=== PATIENT | female | born 1950 | race Caucasian/White ===

== ENCOUNTER 2017-02-12 23:29 | Observation (INO) | payer MEDICARE, OTHER ==
[2017-02-13] MEDS ORDERED: DILTIAZEM HCL/D5W 125 ML IV PRN (00:17)
[2017-02-13] MEDS ORDERED: DILTIAZEM HCL INJ 25 MG/5 ML VIAL IV ONE (00:17)
[2017-02-13 00:19] LABS: ABSOLUTE BASOPHILS # (AUTO) 0.1 10^3/uL (0.0-0.2); ABSOLUTE EOSINOPHILS # (AUTO) 0.1 10^3/uL (0.0-0.6); ABSOLUTE LYMPHOCYTES (AUTO) 2.2 10^3/uL (0.5-4.7); ABSOLUTE MONOCYTES (AUTO) 0.5 10^3/uL (0.1-1.4); ABSOLUTE NEUT (AUTO) 3.3 10^3/uL (1.7-8.2); BASOPHILS % (AUTO) 0.8 % (0-2); EOSINOPHILS % (AUTO) 2.3 % (0-6); HEMATOCRIT 39.7 % (36.0-47.0); HEMOGLOBIN 13.2 g/dL (12.0-15.5); HGB HCT DIFFERENCE -0.1; LYMPHOCYTES % (AUTO) 35.2 % (13-45); MEAN CORPUSCULAR HEMOGLOBIN 29.5 pg (27.0-33.4); MEAN CORPUSCULAR HGB CONC 33.2 g/dL (32.0-36.0); MEAN CORPUSCULAR VOLUME 89 fl (80-97); MONOCYTES % (AUTO) 8.4 % (3-13); RED BLOOD COUNT 4.47 10^6/uL (3.72-5.28); RED CELL DISTRIBUTION WIDTH 13.3 % (11.5-14.0); SEGMENTED NEUTROPHILS % (AUTO) 53.3 % (42-78); WHITE BLOOD COUNT 6.2 10^3/uL (4.0-10.5)
--- NOTE | 2017-02-13 00:20 | ER Document Report ---
ED General - General Chief Complaint: Chest Pain Stated Complaint: CHEST DISCOMFORT Time Seen by Provider: 02/13/17 00:03 TRAVEL OUTSIDE OF THE [place] IN LAST 30 DAYS: No - HPI Patient complains to provider of: Chest pain rapid heart rate Notes: Patient coming in for chest pain of heart rate. Patient states after going to bed around 930 2:00 night started having chest discomfort going into her back also feeling her heart was beating very fast. Patient states had a history of hypertension and high cholesterol is currently on hydrochlorothiazide and Crestor. Patient denies any other medical problems. Patient denies history of atrial fibrillation in the past fluid within the monitor patient is obviously in A. fib with RVR. Patient states recently traveled to [place] however no history of DVT PE in the past. Patient also has no history of family history of dissection or aneurysm. Denies smoking drinking or drugs denies thyroid issues. [facility] Related Data Allergies/Adverse Reactions: celecoxib [From Celebrex] Allergy (Severe, Verified 02/13/17 00:36) neomycin [Neomycin] Allergy (Severe, Verified 02/13/17 00:36) alendronate sodium [From Fosamax] Allergy (Mild, Verified 02/13/17 00:36) amoxicillin [Amoxicillin] Allergy (Mild, Verified 02/13/17 00:36) atorvastatin calcium [From Lipitor] Allergy (Mild, Verified 02/13/17 00:36) risedronate sodium [From Actonel] Allergy (Mild, Verified 02/13/17 00:36) simvastatin [Simvastatin] Allergy (Verified 02/13/17 00:36) Past Medical History - Social History Smoking Status: Unknown if Ever Smoked Family History: Reviewed & Not Pertinent Patient has suicidal ideation: No Patient has homicidal ideation: No - Past Medical History Cardiac Medical History: Reports: Hx Coronary Artery Disease, Hx Hypertension Denies: Hx Heart Attack Pulmonary Medical History: Reports: Hx Asthma - exercise induced asthma Denies: Hx Bronchitis, Hx COPD, Hx Pneumonia Neurological Medical History: Denies: Hx Cerebrovascular Accident, Hx Seizures Renal/ Medical History: Denies: Hx Peritoneal Dialysis Musculoskeltal Medical History: Reports Hx Arthritis - RA Past Surgical History: Denies: Hx Hysterectomy - Immunizations Hx Diphtheria, Pertussis, Tetanus Vaccination: Yes Review of Systems - Review of Systems Constitutional: No symptoms reported EENT: No symptoms reported Cardiovascular: Chest pain Respiratory: No symptoms reported Gastrointestinal: No symptoms reported Genitourinary: No symptoms reported Female Genitourinary: No symptoms reported Musculoskeletal: No symptoms reported Skin: No symptoms reported Hematologic/Lymphatic: No symptoms reported Neurological/Psychological: No symptoms reported -: Yes All other systems reviewed and negative Physical Exam - Vital signs Vitals: Temp Pulse Resp BP Pulse Ox 97.8 F 109 H 16 142/97 H 100 02/12/17 23:33 02/12/17 23:33 02/12/17 23:33 02/12/17 23:33 02/12/17 23:33 Interpretation: Tachycardic - General General appearance: Appears well, Alert - HEENT Head: Normocephalic, Atraumatic Eyes: Normal Pupils: PERRL - Respiratory Respiratory status: No respiratory distress Chest status: Nontender Breath sounds: Normal Chest palpation: Normal - Cardiovascular Rhythm: Irregularly irregular, Tachycardia Heart sounds: Normal auscultation Murmur: No - Abdominal Inspection: Normal Distension: No distension Bowel sounds: Normal Tenderness: Nontender Organomegaly: No organomegaly - Back Back: Normal, Nontender - Extremities General upper extremity: Normal inspection, Nontender, Normal color, Normal ROM , Normal temperature General lower extremity: Normal inspection, Nontender, Normal color, Normal ROM , Normal temperature, Normal weight bearing. No: Mihaela's sign - Neurological Neuro grossly intact: Yes Cognition: Normal Orientation: AAOx4 [place] Coma Scale Eye Opening: Spontaneous [place] Coma Scale Verbal: Oriented [place] Coma Scale Motor: Obeys Commands [place] Coma Scale Total: 15 Speech: Normal Motor strength normal: LUE, RUE, LLE, RLE Sensory: Normal - Psychological Associated symptoms: Normal affect, Normal mood - Skin Skin Temperature: Warm Skin Moisture: Dry Skin Color: Normal Course - Re-evaluation Re-evalutation: 02/13/17 00:20 02/13/17 03:17 Patient initially presented with Gopi DANIELLE complaining of chest pain substernal going to her back. Clean patient we would need to start her on medication however prior to giving Cardizem patient spontaneously converted to normal sinus rhythm. Because of the distribution of pain CTA was performed no signs of PE or dissection. Initial lab work also negative except for slightly elevated TSH. Patient is currently asymptomatic however with no previous testing with patient's symptoms will admit the patient for further evaluation of her chest pain and transient A. fib - Vital Signs Vital signs: Temp Pulse Resp BP Pulse Ox 97.8 F 109 H 14 151/86 H 99 02/12/17 23:33 02/12/17 23:33 02/13/17 03:00 02/13/17 01:01 02/13/17 03:00 - Laboratory Result Diagrams: 02/13/17 00:06 02/13/17 00:06 Laboratory results interpreted by me: 02/13/17 02/13/17 00:06 00:06 Glucose 114 H TSH 5.18 H Critical Care Note - Critical Care Note Total time excluding time spent on procedures (mins): 35 Comments: Multiple evaluation for patient with A. fib with RVR. Discharge - Discharge Clinical Impression: A. fib RVR resolved, Chest pain, Elevated TSH Admitting Provider: Hospitalist Unit Admitted: Telemetry
[2017-02-13 00:21] LABS: PARTIAL THROMBOPLASTIN TIME 34.1 SEC (23.5-35.8); PROTHROMBIN TIME 12.1 SEC (11.4-15.4)
[2017-02-13 00:35] LABS: ALANINE AMINOTRANSFERASE 38 U/L (9-52); ALBUMIN 4.4 g/dL (3.5-5.0); ALKALINE PHOSPHATASE 86 U/L (38-126); ANION GAP 11 (5-19); ASPARTATE AMINO TRANSFERASE 28 U/L (14-36); BILIRUBIN,DIRECT 0.2 mg/dL (0.0-0.4); BILIRUBIN,TOTAL 0.4 mg/dL (0.2-1.3); BLOOD UREA NITROGEN 11 mg/dL (7-20); CALCIUM 9.3 mg/dL (8.4-10.2); CARBON DIOXIDE 29 mmol/L (22-30); CHLORIDE 103 mmol/L (98-107); CREATINE KINASE 51 U/L (30-135); CREATININE RESULT 0.64 mg/dL (0.52-1.25); GLUCOSE 114 mg/dL (75-110); POTASSIUM 3.8 mmol/L (3.6-5.0); SODIUM 143.1 mmol/L (137-145); TOTAL PROTEIN 7.4 g/dL (6.3-8.2)
[2017-02-13 00:58] LABS: CREATINE KINASE MB 0.75 ng/mL (<4.55)
[2017-02-13 01:00] LABS: TROPONIN I < 0.012 ng/mL
[2017-02-13 01:03] LABS: LIPASE 246.7 U/L (23-300); MAGNESIUM 2.2 mg/dL (1.6-2.3)
[2017-02-13 02:04] LABS: THYROID STIMULATING HORMONE 5.18 uIU/mL (0.47-4.68)
--- NOTE | 2017-02-13 02:21 | RADIOLOGY REPORT (SQ) ---
EXAM DESCRIPTION: CHEST SINGLE VIEW COMPLETED DATE/TIME: 02/13/2017 2:01 am REASON FOR STUDY: cp COMPARISON: 07/03/2015. EXAM PARAMETERS: NUMBER OF VIEWS: One view. TECHNIQUE: Single frontal radiographic view of the chest acquired. RADIATION DOSE: NA LIMITATIONS: None. FINDINGS: LUNGS AND PLEURA: No opacities, masses or pneumothorax. No pleural effusion. MEDIASTINUM AND HILAR STRUCTURES: No masses. Contour normal. HEART AND VASCULAR STRUCTURES: Heart normal in size. Normal vasculature. BONES: No acute findings. HARDWARE: None in the chest. OTHER: No other significant finding. IMPRESSION: NO ACUTE RADIOGRAPHIC FINDING IN THE CHEST. TECHNICAL DOCUMENTATION: JOB ID: [id number]
--- NOTE | 2017-02-13 02:29 | RADIOLOGY REPORT (SQ) ---
EXAM DESCRIPTION: CTA CHEST COMPLETED DATE/TIME: 02/13/2017 2:01 am REASON FOR STUDY: afib chest pain COMPARISON: None. TECHNIQUE: CT scan of the chest performed using helical scanning technique with dynamic intravenous contrast injection. Images reviewed with lung, soft tissue and bone windows. Reconstructed coronal and sagittal MPR images reviewed. Additional 3 dimensional post-processing performed to develop Maximal Intensity Projection images (WI P). All images stored on PACS. All CT scanners at this facility use dose modulation, iterative reconstruction, and/or weight based d osing when appropriate to reduce radiation dose to as low as reasonably achievable (ALARA). [facility]: Dose Right [facility]: CareDose [facility]: Dose Right [facility]: Teradose 4D [facility]: MuckRock CONTRAST TYPE AND DOSE: contrast/concentration: Isovue 370.00 mg/ml; Total Contrast Delivered: 63.0 ml; Total Saline Delivered: 104.0 ml RENAL FUNCTION: Creatinine 0.6 RADIATION DOSE: Up-to-date CT equipment and radiation dose reduction techniques were employed. CTDIv ol: 6.6 - 14.3 mGy. DLP: 535 mGy-cm. . LIMITATIONS: None. FINDINGS: LUNGS AND PLEURA: No masses, infiltrates, pneumothorax. No pleural effusions, calcificati ons. Mild emphysematous hyperinflation. AORTA AND GREAT VESSELS: Mild aneurysmal enlargement of the ascending thoracic aorta measures up to 3 .7 cm in diameter. HEART: No pericardial effusion. Small coronary arterial calcification. PULMONARY ARTERIES: No emboli visualized in the main pulmonary arteries or the segmental branches. HILAR AND MEDIASTINAL STRUCTURES: No identified masses or abnormal nodes. HARDWARE: None in the chest. UPPER ABDOMEN: Small hiatal hernia. THYROID AND OTHER SOFT TISSUES: No masses. No adenopathy. BONES: No acute or significant finding. 3D MIPS: Confirm above findings. OTHER: No other significant finding. IMPRESSION: No acute cardiopulmonary findings. No evidence of pulmonary emboli. TECHNICAL DOCUMENTATION: JOB ID: [id number] Quality ID # [id number]: Final reports with documentation of one or more dose reduction techniques (e.g., Au tomated exposure control, adjustment of the mA and/or kV according to patient size, use of iterative reconstruction technique) 2010 [employer]- All Rights Reserved
[2017-02-13] MEDS ORDERED: ACETAMINOPHEN 325 MG TABLET PO PRN (03:42)
[2017-02-13] MEDS ORDERED: PROMETHAZINE HCL 25 MG TABLET PO PRN (07:44)
--- NOTE | 2017-02-13 08:20 | PDOC H&P ---
History of Present Illness Admission Date/PCP: 02/13/17 03:44 [facility] Patient complains of: chest pain History of Present Illness: MARTA BENITEZ is a 66 year old female with underlying hypertension , hyperlipidemia, and rheumatoid arthritis, who presents to the emergency room for evaluation of above complaint. Patient has been discussed with emergency room physician who evaluated the patient. Approximately 9:30 PM the evening of the first, as patient was getting ready to go to bed, she began having pressure-like substernal chest discomfort that radiated into her back. Also had a sensation that her heart was beating rather rapidly. Nothing in particular made the pain worse. No prior such episodes of pain. Upon arrival in the emergency room, was noted to be in atrial fibrillation with rapid ventricular response. However, she spontaneously converted back to sinus rhythm prior to any medication being given. Denies nausea vomiting, diarrhea or dysuria, fever or chills. She is currently resting quietly, chest pain-free. No prior history of atrial fibrillation, atrial flutter, or rapid irregular heartbeat. Cardiac history basically negative other than hypertension. No history of congestive heart failure, or myocardial infarction. No history of pulmonary embolus or DVT. She did recently take a trip to [place]. However, unremarkable CT angiogram of chest. Negative stress test approximately 10 years ago. Hospitalized on our service basically for 24 hours 03 July 2015 with final diagnoses including chest pain rheumatoid arthritis hypertension and hyperlipidemia. Outpatient cardiac stress test was recommended to patient, but she did not follow-up with this. History and physical and discharge summary have been reviewed. Laboratory results are listed in [facility] and are reviewed. X-ray summary results are listed below, with full report(s) reviewed. . EKG's reviewed and compared to prior tracing from July 03, 2015. Social history/personal habits: . 2 daughters. Retired. No use of tobacco or illicit drugs. Approximately a bottle of wine per week. Allergies/adverse reactions are listed in [facility] and are reviewed. Home medications initially autopopulated into [employer] may not accurately reflect patient's true medications, dosages, and/or frequencies. personnel technician to reconcile medications. Unfortunately, patient not certain of all medications/dosages/frequencies. REVIEW OF SYSTEMS: Constitutional: No fever or chills. Eyes: Wears glasses. ENT: No swallowing problems or complaints. Partial hearing loss. Pulmonary: No current complaints. Cardiovascular: See history and present illness. Gastrointestinal: No current complaints, including nausea or vomiting. Skin: Mild psoriasis involving her hands. Hematologic: Easy bruising. Neurologic: No current complaints, including numbness or tingling. Musculoskeletal: Pain from rheumatoid arthritis. Psychiatric: Denies anxiety or depression. Endocrine: No current complaints, including polyuria. Genitourinary: No current complaints, including dysuria. PHYSICAL EXAMINATION: 5 feet 1 inches tall. 55.7 kg. BMI 23.2 kg/m.Temperature 97.6. Pulse 64 and regular. Blood pressure 154/75. 100% saturation on room air. Respirations are 18 and unlabored. Thin otherwise well-developed female appearing a bit younger than her stated age. Pleasant awake alert and cooperative. No obvious distress other than perhaps mildly anxious. Female floor nurse Rafaela is present. Skin is warm and dry. No grossly obvious evidence of rash in areas of skin examined. No subcutaneous nodules palpated. ENT: Hearing grossly normal to normal conversation. Tongue midline on protrusion pink and slightly tacky. Eyes: No scleral icterus. Pupils equal and reactive to light at 4 mm. Percival conjunctivae. Neck is supple and nontender to gentle active range of motion and palpation. Midline trachea. No palpable thyroid nodule mass enlargement or tenderness. Lymphatic: No palpable cervical or clavicular nodes. Neck and lymphatic exams limited by patient body habitus. Psychiatric: Reasonable insight into acute and chronic medical issues. Oriented to time location and why here. Lungs: Auscultation reveals clear and equal breath sounds bilaterally. No use of accessory respiratory muscles. Cardiovascular: Heart regular rate and rhythm, without gallop murmur or rub. No carotid or abdominal aortic bruits. No ankle or pedal edema. Faintly palpable dorsalis pedis pulses. Abdomen:soft slightly distended nontender with positive bowel sounds. Unable to adequately evaluate abdomen for masses or organomegaly due to distention. Compression of neither her upper abdomen nor sternum reproduces her previously noted chest discomfort. Extremities: Feet are warm and dry. No calf tenderness to compression. No grossly obvious visual evidence of calf swelling. Gentle manipulation of lower extremities fails to reveal any obvious evidence of injury or instability to knees hips or ankles. Neurologic: Moves upper extremities grossly normally. Patellar reflexes absent. Absent Babinski. Light touch is intact at feet. Dorsiflexion and plantarflexion of feet 5 / 5 and symmetric. Past Medical History Cardiac Medical History: Reports: Hyperlipidema, Hypertension Denies: Congestive Heart Failure, DVT, Myocardial Infarction, Pulmonary Embolism - / Pulmonary Medical History: Reports: Asthma - exercise induced asthma Denies: Bronchitis, Chronic Obstructive Pulmonary Disease (COPD), Pneumonia, Sleep Apnea EENT Medical History: Reports: Eyes - Glasses, Ears - Partial hearing loss Denies: Throat Neurological Medical History: Denies: Hemorrhagic CVA, Ischemic CVA, Seizures Endocrine Medical History: Denies: Diabetes Mellitus Type 1, Diabetes Mellitus Type 2, Hyperthyroidism, Hypothyroidism Renal/ Medical History: Reports: None GI Medical History: Reports: Gastroesophageal Reflux Disease Denies: Cirrhosis, Hepatitis, Peptic Ulcer Disease Musculoskeltal Medical History: Reports: Arthritis - RA Skin Medical History: Reports: Psoriasis Psychiatric Medical History: Denies: Alcohol Dependency, Depression, General Anxiety Disorder, Substance Abuse, Tobacco Dependency Hematology: Reports: Other - Easy bruising Denies: Anemia Infectious Medical History: Denies: Clostridium Difficile, Hepatitis B, Hepatitis C, Methicillin- Resistant Staph Aureus Past Surgical History Past Surgical History: Reports: Other - Excision of cerebral meningioma Denies: Hysterectomy Social History Information Source: Patient, Emergency Med Personnel, [facility] Records Lives with: Spouse/Significant other Smoking Status: Never Smoker Frequency of Alcohol Use: Rare Hx Recreational Drug Use: No Drugs: None Hx Prescription Drug Abuse: No - Advance Directive Resuscitation Status: Full Code Surrogate healthcare decision maker:: Family History Family History: Reviewed & Not Pertinent Parental Family History Reviewed: Yes - Father at 95 of old age. Mother of heart disease. Children Family History Reviewed: Yes - Healthy Sibling(s) Family History Reviewed.: Yes - Brother with hyperglycemia Medication/Allergy Home Medications: RX: Cetirizine HCl [Zyrtec 10 mg Tablet] 10 mg PO DAILY PRN 07/04/13 RX: Hydrochlorothiazide 12.5 mg PO DAILY 07/04/13 RX: Ubidecarenone [Co Q-10] 100 mg PO DAILY 07/04/13 RX: Cyanocobalamin (Vitamin B-12) [Vitamin B-12 1000 mcg Tablet] 1,000 mcg PO FR @10 07/03/15 RX: Rosuvastatin Calcium [Crestor 5 mg Tablet] 5 mg PO SUWE@22 PRN 07/03/15 RX: Atenolol [Tenormin 50 mg Tablet] 12.5 mg PO DAILY #30 tablet 02/13/17 RX: Clopidogrel Bisulfate [Plavix 75 mg Tablet] 75 mg PO DAILY #30 tablet Allergies/Adverse Reactions: celecoxib [From Celebrex] Allergy (Severe, Verified 02/13/17 00:36) neomycin [Neomycin] Allergy (Severe, Verified 02/13/17 00:36) alendronate sodium [From Fosamax] Allergy (Mild, Verified 02/13/17 00:36) amoxicillin [Amoxicillin] Allergy (Mild, Verified 02/13/17 00:36) atorvastatin calcium [From Lipitor] Allergy (Mild, Verified 02/13/17 00:36) risedronate sodium [From Actonel] Allergy (Mild, Verified 02/13/17 00:36) simvastatin [Simvastatin] Allergy (Verified 02/13/17 00:36) Physical Exam Vital Signs: Temp Pulse Resp BP Pulse Ox 97.6 F 61 18 154/75 H 100 02/13/17 05:17 02/13/17 07:00 02/13/17 05:17 02/13/17 05:17 02/13/17 05:17 Intake & Output 02/12/17 02/13/17 02/14/17 00:59 00:59 00:59 Weight 55.7 kg Results Laboratory Results: 02/13/17 05:48 Troponin I < 0.012 Impressions: Chest X-Ray 02/13/17 00:03 IMPRESSION: NO ACUTE RADIOGRAPHIC FINDING IN THE CHEST. Chest/Abdomen CTA 02/13/17 00:16 IMPRESSION: No acute cardiopulmonary findings. No evidence of pulmonary emboli. Assessment & Plan - Diagnosis (1) Chest pain Qualifiers: Chest pain type: unspecified Qualified Code(s): R07.9 - Chest pain, unspecified Is this a current diagnosis for this admission?: YesPlan: Patient will be placed in observation bed under chest pain protocol. Patient understands to notify staff should chest pain recur. Serial troponin . Repeat EKG. lipid panel. I have strongly encouraged patient to be careful getting out of bed without notifying staff, to avoid a fall with injury. Knee high SCDs for DVT prophylaxis, along with subcu Lovenox. Impression and plans were discussed with patient, who concurs. (2) New onset atrial fibrillation Is this a current diagnosis for this admission?: YesPlan: Cardiology consult. Echocardiogram. (3) HTN (hypertension) Qualifiers: Hypertension type: essential hypertension Qualified Code(s): I10 - Essential (primary) hypertension Is this a current diagnosis for this admission?: YesPlan: Resume home medications as appropriate once these have been determined and reviewed. (4) Hyperlipidemia Qualifiers: Hyperlipidemia type: unspecified Qualified Code(s): E78.5 - Hyperlipidemia, unspecified Is this a current diagnosis for this admission?: YesPlan: Lipid panel. Resume home medications as appropriate once these have been determined and reviewed. (5) Rheumatoid arthritis Qualifiers: Rheumatoid factor presence: unspecified presence Laterality: unspecified laterality Is this a current diagnosis for this admission?: YesPlan: As needed pain medication. - Time Time Spent: 50 to 70 Minutes Anticipated discharge: Home Within: within 24 hours
[2017-02-13] MEDS ORDERED: ENOXAPARIN SODIUM INJ 40 MG/0.4 ML DISP.SYRIN SUBCUT SCH (10:00)
[2017-02-13] MEDS ORDERED: CLOPIDOGREL BISULFATE 75 MG TABLET PO SCH (10:00)
[2017-02-13 10:44] LABS: CHOLESTEROL 186.12 mg/dL (0-200); Direct HDL 43 mg/dL (>40); TRIGLYCERIDES 150 mg/dL (<150)
[2017-02-13 10:54] LABS: DIRECT LDL 122 mg/dL (<100)
--- NOTE | 2017-02-13 11:16 | EKG REPORT ---
SEVERITY:- OTHERWISE NORMAL ECG - SINUS RHYTHM LEFT AXIS DEVIATION : Confirmed by: Luciano Martino 13-Feb-2017 11:16:27
--- NOTE | 2017-02-13 11:18 | EKG REPORT ---
SEVERITY:- BORDERLINE ECG - SINUS RHYTHM LEFT AXIS DEVIATION CONSIDER ANTERIOR INFARCT BORDERLINE T ABNORMALITIES, ANTERIOR LEADS : Confirmed by: Luciano Martino 13-Feb-2017 11:17:10
--- NOTE | 2017-02-13 11:18 | EKG REPORT ---
SEVERITY:- ABNORMAL ECG - ATRIAL FIBRILLATION, V-RATE 99-183 BORDERLINE LEFT AXIS DEVIATION REPOLARIZATION ABNORMALITY, PROB RATE RELATED : Confirmed by: Luciano Martino 13-Feb-2017 11:17:22
[2017-02-13 14:02] LABS: APPEARANCE,URINE CLEAR; BILIRUBIN,URINE NEGATIVE (NEGATIVE); GLUCOSE, URINE NEGATIVE (NEGATIVE); KETONES,URINE NEGATIVE (NEGATIVE); LEUKOCYTE ESTERASE,URINE NEGATIVE (NEGATIVE); NITRITE,URINE NEGATIVE (NEGATIVE); PROTEIN,URINE NEGATIVE (NEGATIVE); UROBILINOGEN,URINE NEGATIVE mg/dL (<2.0)
[2017-02-13 14:03] LABS: URINE SPECIFIC GRAVITY > 1.060
[2017-02-13 14:15] LABS: URINE BARBITURATES SCREEN NEGATIVE; URINE METHADONE SCREEN NEGATIVE; URINE OPIATES LOW NEGATIVE; URINE PHENCYCLIDINE SCREEN NEGATIVE
--- NOTE | 2017-02-13 14:46 | PDOC DISCHARGE SUMMARY ---
General - Admit/Disc Date/PCP Admission Date/Primary Care Provider: 02/13/17 07:33 Discharge Date: 02/13/17 - Discharge Diagnosis (1) Chest pain Is this a current diagnosis for this admission?: Yes (2) New onset atrial fibrillation Is this a current diagnosis for this admission?: Yes (3) HTN (hypertension) Is this a current diagnosis for this admission?: Yes (4) Hyperlipidemia Is this a current diagnosis for this admission?: Yes (5) Rheumatoid arthritis Is this a current diagnosis for this admission?: Yes - Additional Information Resuscitation Status: Full Code Discharge Diet: Cardiac - Low-fat low-salt Discharge Activity: Activity As Tolerated, Balance Activity w/Rest Home Medications: Cetirizine HCl [Zyrtec 10 mg Tablet] 10 mg PO DAILY PRN 07/04/13 Hydrochlorothiazide 12.5 mg PO DAILY 07/04/13 Ubidecarenone [Co Q-10] 100 mg PO DAILY 07/04/13 Cyanocobalamin (Vitamin B-12) [Vitamin B-12 1000 mcg Tablet] 1,000 mcg PO FR@10 07/03/15 Rosuvastatin Calcium [Crestor 5 mg Tablet] 5 mg PO SUWE@22 PRN 07/03/15 Atenolol [Tenormin 50 mg Tablet] 12.5 mg PO DAILY #30 tablet 02/13/17 Clopidogrel Bisulfate [Plavix 75 mg Tablet] 75 mg PO DAILY #30 tablet 02/13/17 Additional Information: Stress test and event recorder as outpatient with Dr. Veronica History of Present Illness Patient complains of: Chest pain History of Present Illness: MARTA BENITEZ is a 66 year old female Hospital Course Hospital Course: The patient was admitted to observation. Plavix was started. Serial cardiac enzymes were obtained and they were negative. Cardiology was consulted and eventually started the patient on low-dose atenolol. The patient's symptoms resolved. Free T4 was normal. The rest of the hospital stays unremarkable. Patient's atrial fibrillation spontaneously converted back to sinus. Patient cleared by cardiology for discharge to have this event recorder as outpatient as well as stress test. Physical Exam Vital Signs: Temp Pulse Resp BP Pulse Ox 98.3 F 64 16 148/66 H 98 02/13/17 11:45 02/13/17 11:45 02/13/17 11:45 02/13/17 11:45 02/13/17 11:45 General appearance: PRESENT: no acute distress, cooperative Head exam: PRESENT: normocephalic Eye exam: PRESENT: EOMI Mouth exam: PRESENT: moist, neck supple Neck exam: ABSENT: JVD Respiratory exam: PRESENT: clear to auscultation booker Cardiovascular exam: PRESENT: RRR GI/Abdominal exam: PRESENT: normal bowel sounds, soft. ABSENT: distended, tenderness Extremities exam: ABSENT: pedal edema Neurological exam: PRESENT: alert, awake, oriented to person, oriented to place , oriented to time, oriented to situation Skin exam: PRESENT: dry, warm. ABSENT: cyanosis Results Laboratory Results: 02/13/17 02/13/17 10:15 12:37 Triglycerides 150 Cholesterol 186.12 LDL Cholesterol Direct 122 H VLDL Cholesterol 30.0 HDL Cholesterol 43 Urine Color YELLOW Urine Appearance CLEAR Urine pH 6.0 Ur Specific [place] > 1.060 Urine Protein NEGATIVE Urine Glucose (UA) NEGATIVE Urine Ketones NEGATIVE Urine Blood NEGATIVE Urine Nitrite NEGATIVE Ur Leukocyte Esterase NEGATIVE Urine WBC (Auto) 2 Urine RBC (Auto) 1 02/13/17 10:15 Troponin I < 0.012 Impressions: Chest X-Ray 02/13/17 00:03 IMPRESSION: NO ACUTE RADIOGRAPHIC FINDING IN THE CHEST. Chest/Abdomen CTA 02/13/17 00:16 IMPRESSION: No acute cardiopulmonary findings. No evidence of pulmonary emboli. Qualifiers PATEINT BEING DISCHARGED WITH ANY OF THE FOLLOWING DIAGNOSIS?: No Plan Discharge Plan: Follow-up with primary care physician in 1 week. Follow-up with Dr. Veronica in 1 week. Time Spent: Less than 30 Minutes
[2017-02-13] MEDS ORDERED: ATENOLOL 50 MG TABLET PO ONE (15:00)
[2017-02-13 16:13] VITALS: BP 154/75
--- NOTE | 2017-02-13 21:49 | CONSULTATION REPORT E ---
Consultation Report NAME: MARTA BENITEZ : 1950 AGE: 66Y DATE: 02/13/2017 402 A TO: JHONNY RIOS M.D. FROM: MENG MAN M.D. Requesting Physician REASON FOR CONSULTATION: Patient with chest tightness and palpitations was found to be in new-onset atrial fibrillation which is paroxysmal. The patient converted to sinus rhythm with 1 dose of Cardizem intravenously. The patient is now in sinus rhythm. HISTORY OF PRESENT ILLNESS: The patient is a 66-year-old female with known history of hypertension controlled with hydrochlorothiazide, history of hyperlipidemia, and history rheumatoid arthritis, who states that last night when she was about to go to bed had some discomfort in the back in the interscapular area and subsequently had retrosternal chest pressure and discomfort which is what she described the chest pain as. This was associated with palpitations which was a sensation of rapid beating of the heart. The patient denies any shortness of breath or dizziness and near syncope or syncope. There was no PND or orthopnea. The symptoms lasted for about an hour, and she came to the emergency room where she was found to be in atrial fibrillation with rapid ventricular response, and the patient was given 1 dose of Cardizem intravenously as a bolus, and the patient converted to sinus rhythm and has remained in sinus rhythm since then. The patient denies any such episodes in the past. As mentioned earlier, there is no PND or orthopnea. There are no prior anginal symptoms except the chest pain/discomfort she complained of when her heart rate was fast. She has no TIA or CVA symptoms. There is no pedal edema. PAST MEDICAL HISTORY: Positive for: 1. History of mild hypertension which is controlled with hydrochlorothiazide. 2. She also has a history of allergies and is on Zyrtec. 3. She has a history of rheumatoid arthritis which is not causing any major problems. 4. She also has hyperlipidemia. 5. There is no history of diabetes mellitus or thyroid disease. There is no history of coronary artery disease, past history of WI, or history of congestive heart failure. The patient denies any such palpitations in the past. There is no history of chronic kidney disease. There is no history of TIA or CVA. There is no history of anxiety or depression. 6. The patient does have a history of hyperlipidemia. PAST SURGICAL HISTORY: Positive for: 1. Remote history of cholecystectomy. 2. She had a benign breast biopsy which did not show any malignancy. 3. She has also had bilateral cataract surgeries. SOCIAL HISTORY: The patient does not smoke. There is no history of EtOH abuse. ALLERGIES: She is allergic to: 1. CELEBREX. 2. NEOMYCIN. 3. FOSAMAX. 4. AMOXICILLIN. 5. ATORVASTATIN. 6. ACTONEL. 7. SIMVASTATIN. MEDICATIONS: Include: 1. Zyrtec 10 mg p.o. daily p.r.n. 2. Hydrochlorothiazide 12.5 mg p.o. daily. 3. CoQ-10 100 mg 1 p.o. daily. 4. Cyanocobalamin vitamin B12 1000 mcg tablets, 500 mcg p.o. daily. 5. Crestor 5 mg p.o. daily. FAMILY HISTORY: Positive for father dying of old age. The mother had a history of heart attacks. Brother has hyperglycemia but is not diagnosed as having diabetes mellitus. DISPOSITION: The patient is FULL CODE. Her is her surrogate healthcare decision maker. REVIEW OF SYSTEMS: CONSTITUTIONAL: Denies any fever, chills, or rigors. There is no generalized fatigue or weakness. The patient is pretty active. HEAD: Denies any headaches or head injury. There is no dizziness. EYES: No history of amblyopia or diplopia. No history of amaurosis fugax. EARS: No history of tinnitus. No history of hearing loss. No history of vertigo. No history of recurrent ear infections. NOSE: No history of hay fever. No history of nosebleeds. No history of nasal polyps. MOUTH: No history of altered taste sensation. No history of ulcers in the mouth. No bleeding from gums. THROAT: There is no odynophagia or dysphagia. There are no recurrent sore throats. SKIN: There is no pruritus. There is no yellowish discoloration of the skin. There is no psoriasis. There is no skin cancer. NECK: No painful or painless swelling of the neck. No lymphadenopathy. No goiter. No symptoms of C-spine arthritis. LUNGS: No history of asthma or COPD. No history of cough or wheezing. No history of sleep apnea. No history of pulmonary embolism. No history of hemoptysis. No history of pleuritic chest pain. CARDIAC: History of mild hypertension, controlled well with the hydrochlorothiazide. No history of congestive heart failure. No history of WI or anginal symptoms. First episode of palpitations which revealed atrial fibrillation which converted to sinus rhythm. No such episodes in the past. She had chest discomfort, tightness, WI is ruled out but does have an EKG which is slightly abnormal with T-wave inversion in the anterior leads. There is no history of prior history of atrial fibrillation, this is the first episode, and she has converted to sinus rhythm. There is no history of congestive heart failure. No history of PND or orthopnea. No history of syncope. MUSCULOSKELETAL: History of arthritis and history of rheumatoid arthritis present. Rheumatoid arthritis is in remission. The patient has no history of Raynaud's phenomenon. RENAL: No history of chronic kidney disease. No symptoms of UTI. No history of hematuria, pyuria, or dysuria. GASTROINTESTINAL: No history of GI bleed. No history of GERD. No history of jaundice. No history of altered bowel movements. No history of fatty food intolerance. No history of cirrhosis or hepatitis. CENTRAL NERVOUS SYSTEM: No history of TIA or CVA. No history of seizures, headaches, or migraines. No history of gait imbalance. No history of sleep apnea. PSYCHIATRIC: No history of anxiety or depression. No history of suicidal ideation. No history of homicidal ideation. VASCULAR: No history of calf or buttock claudication. No history of DVT. HEMATOLOGICAL: No history of bleeding diathesis. No history of clotting disorders. The rest of the review of systems is negative for any fevers, chills, or rigors. PHYSICAL EXAMINATION: VITAL SIGNS: The patient is afebrile with a temperature of 98.3 degrees Fahrenheit. Pulse is 64 beats per minute. Blood pressure is 148/66. Respirations are 16 per minute. O2 saturations are 98% on room air. At present the patient is sinus rhythm. After examination, the patient's heart rate did go up to 70 and I was able to start the patient on atenolol 12.5 mg p.o. daily. GENERAL: On examination the patient does appear well nourished, in no acute distress. She is well groomed. Note that the patient is well built, in no acute distress. HEAD: Atraumatic/normocephalic. EYES: Pupils are equal, round, regular, reactive to light and accommodation. Extraocular movements are normal. There is no conjunctival pallor. There is no scleral icterus. EARS: Tympanic membranes are intact. External auditory canals are clear. There are no lesions of the pinnae. NOSE: There is no deviated nasal septum. There is no inflammation of the nasal mucous membranes. MOUTH: Mucous membranes of the mouth are moist. Tongue is moist. There are no ulcers. There is no bleeding from the gums. THROAT: There is no redness of the oropharynx. There is no exudate. SKIN: There are no skin rashes. There is no petechia or ecchymosis. There are no skin lesions. NECK: Supple. There is no JVD. Carotids are equal. There is no bruit. There is no goiter. There is no lymphadenopathy. Trachea is central. LUNGS: Clear to auscultation and percussion. There is no chest wall tenderness. HEART: S1, S2 is heard. There is no S3 gallop. There is no S4 gallop. There is a systolic murmur in the left sternal border and the apex. There is no rub. There is a murmur suggestive of mitral regurgitation, question severity. The mitral regurgitation murmur is heard in the apex with faint radiation to the left axilla. There is no S3 or S4 gallop. There is no rub. ABDOMEN: Soft, nontender. There is no hepatosplenomegaly. Bowel sounds are well heard. There are no tender areas or masses. There is no rebound, guarding, or rigidity. EXTREMITIES: Femorals are well felt. Leg pulses are well felt. There is no femoral bruit. There is no pedal edema. There is no DVT or cellulitis. There is no cyanosis or clubbing. There is normal capillary refill. There is no calf tenderness. CENTRAL NERVOUS SYSTEM: The patient is conscious, awake, alert, oriented x3 with no focal deficits. PSYCHIATRIC: The patient's judgement and insight are intact. Her affect is normal. DIAGNOSTIC DATA: The patient's EKG initially shows atrial fibrillation with a ventricular response of 142 beats per minute, borderline left axis deviation, repolarization abnormality in the anterolateral leads most likely secondary to rate related. The patient's chest x-ray reviewed by me shows that it is negative with no acute infiltrates or congestive heart failure. The patient's subsequent EKG done this morning shows a sinus rhythm, left axis deviation, T-wave inversion in the anterior leads V1 and V2 and nonspecific T-changes in leads V3 through V6. There are also nonspecific ST-T changes in the inferior leads which are minor and nonspecific. The patient's CT of the chest shows no evidence of pulmonary emboli, and no acute cardiopulmonary findings. The patient's laboratory data shows a white count of 6,200, hemoglobin is 13.2, hematocrit is 39.7, and the platelet count is 237,000. The patient's ProTime is 12.1, INR is 0.84, PTT is 34.1. The patient's magnesium is 2.2. The patient's TSH is slightly elevated at 5.18, free T4 is 1.05. The patient's total cholesterol is 186.12, triglycerides are borderline normal at 150, her HDL cholesterol is 43, her LDL cholesterol is 122. Her cardiac enzymes have been negative x3 with the troponin being less than 0.012. The patient's sodium is 143.1, potassium 3.8, chloride 103, CO2 is 29, the patient's BUN is 7, creatinine 0.64, GFR is greater than 60, her glucose is 114, and her calcium is 9.3. Her liver function tests are normal. Her total protein is 7.4, albumin is 4.4. IMPRESSION: 1. Paroxysmal atrial fibrillation, first episode, converted to sinus rhythm now. 2. Chest pain/discomfort, no evidence of WI. The patient has multiple concerning risk factors such as age, family history, hypertension, and hyperlipidemia. 3. Mildly abnormal EKG with T-wave inversion in V1 and V2 and nonspecific ST-T changes in lead V3 through V6 and the inferior leads. 4. Hypertension, mild, seems to be well controlled on current medication. 5. Hyperlipidemia. The patient's LDL cholesterol is still high. 6. Systolic murmur of mitral regurgitation, question severity of mitral regurgitation. 7. Rheumatoid arthritis in remission. RECOMMENDATIONS: Note that the patient desires to go home. The patient has been ambulated. We will start the patient on atenolol 12.5 mg p.o. daily. I have given them the cell number to call me. We will schedule the patient for an outpatient echocardiogram to assess mitral regurgitation and for the atrial fibrillation and hypertension, and since the patient has rheumatoid arthritis, would also want to make sure that there are no cardiac complications of rheumatoid arthritis. Would also recommend that the patient have an exercise treadmill Cardiolite or an IV Lexiscan Cardiolite stress test as an outpatient. Also we will get a 30-day event monitor. Note, that the patient was seen at 11:45 a.m. this morning and 40 minutes spent on this patient. Note, more than 50% of the time was spent in direct patient care. Her medications have been reviewed and medications adjusted. Discussed the case with the patient, the patient's , and also with the other caregiving providers and coordination of care was done. Note, this is a highly complex medical decision making case in view of the patient's first episode of atrial fibrillation and the patient's desire to go home and have further workup as an outpatient due to domestic reasons. Will follow the patient with you and will follow the patient as an outpatient. DICTATING PHYSICIAN: JHONNY RIOS M.D. [id number] PHY#: [id number] ID: [id number] JOB#: [id number] ACCT: [id number] cc:JHONNY RIOS M.D. >
[2017-02-14] MEDS ORDERED: ATENOLOL 50 MG TABLET PO SCH (10:00)
== END 2017-02-13 16:35 | disposition home or self-care (01) ==
LOC: ER 23:29 → EH 02-13 03:44 → UNDOADMOB 02-13 03:44 → EH 02-13 05:09 → 4N 02-13 05:09
PROVIDERS: ADMIT Family Medicine; ATTEND Family Medicine
DX: R07.89 Other chest pain (principal); I48.0 Paroxysmal atrial fibrillation; I10 Essential (primary) hypertension; E78.5 Hyperlipidemia, unspecified; I34.0 Nonrheumatic mitral (valve) insufficiency; R94.31 Abnormal electrocardiogram [ECG] [EKG]; M06.9 Rheumatoid arthritis, unspecified; Z79.899 Other long term (current) drug therapy; L40.9 Psoriasis, unspecified; Z90.49 Acquired absence of other specified parts of digestive tract; Z82.49 Family history of ischemic heart disease and other diseases of the circulatory system; Z87.09 Personal history of other diseases of the respiratory system
CPT/HCPCS: 93005 ×3; 99291; 36415; 84439; 82553; 82550; 83690; 83735; 84443; 85025; 85610; 85730; 80053; 81001; 84484; 80307; 80061; 71010; 71275; 93010 ×2; G0378; A9270 ×2; J1650; J3490

== ENCOUNTER → 2017-02-23 | Outpatient (CLI) | payer MEDICARE, OTHER ==
[~2017-02-23] MED LIST: REGADENOSON INJ 0.4 MG/5 ML DISP.SYRIN IV ONE
--- NOTE | 2017-02-23 19:58 | DRAGON STRESS TEST REPORT ---
Intravenous Lexiscan Cardiolite stress test using single photon emmision computerized tomography. Date of procedure: 02/23/2017. Ordering Provider: Dr. Nancie Veronica. Patient's status: Age, hypertension, dyslipidemia, and outpatient Indication: Chest pain. Coronary risk factors: Family history of coronary artery disease, age, hypertension, and dyslipidemia Resting EKG:, Sinus rhythm. Nonspecific ST-T changes. Stress EKG:[ No changes of ischemia. The patient had no chest pain or discomfort, and there were no arrhythmias seen. Reason for termination: Protocol. Conclusions: Normal EKG and hemodynamic response to IV Lexiscan. Nuclear data: At rest the patient was given 10.90 millicuries of technetium 99m sestamibi injected intravenously. As per protocol rest non gated SPECT images were obtained. Subsequently the patient was given intravenous Lexiscan at a dose of 0.4 mg in 5 mL intravenously, followed by flush with normal saline. Subsequently the stress dose of 30.8 millicuries of technetium 99m sestamibi was injected intravenously. As per protocol stress gated images were obtained. Nuclear interpretation: Review of images showed that all segments of the myocardium had normal perfusion at rest, and normal perfusion post stress with IV Lexiscan. All segments of the myocardium had normal motion, contraction, and thickening by gated study. T. I D. ratio was normal at 0.99 68. Computer read rest, and stress left ventricular ejection fraction were 68 %, and 70 %, respectively. Conclusion: 1. There is no scintigraphic evidence of Lexiscan induced myocardial ischemia. 2. There is no scintigraphic evidence of myocardial infarction/scar. Recommendations: Aggressive risk factor modification, and treating the underlying co- morbidities. MTDD
== END ==
LOC: RAD 06:51
PROVIDERS: ATTEND Specialist
DX: R07.9 Chest pain, unspecified (principal); I10 Essential (primary) hypertension; E78.5 Hyperlipidemia, unspecified; Z82.49 Family history of ischemic heart disease and other diseases of the circulatory system
CPT/HCPCS: 93017; 78452; A9500; J2785; Q9969

== ENCOUNTER 2018-07-02 02:25 | Emergency (ER) | payer MEDICARE, OTHER ==
[2018-07-02 03:31] LABS: ABSOLUTE BASOPHILS # (AUTO) 0.1 10^3/uL (0.0-0.2); ABSOLUTE EOSINOPHILS # (AUTO) 0.1 10^3/uL (0.0-0.6); ABSOLUTE MONOCYTES (AUTO) 0.4 10^3/uL (0.1-1.4); ABSOLUTE NEUT (AUTO) 3.2 10^3/uL (1.7-8.2); EOSINOPHILS % (AUTO) 1.8 % (0-6); HEMATOCRIT 38.2 % (36.0-47.0); HEMOGLOBIN 13.3 g/dL (12.0-15.5); MEAN CORPUSCULAR HGB CONC 34.9 g/dL (32.0-36.0); MEAN CORPUSCULAR VOLUME 89 fl (80-97); MONOCYTES % (AUTO) 7.6 % (3-13); PLATELET COUNT 191 10^3/uL (150-450); RED BLOOD COUNT 4.29 10^6/uL (3.72-5.28); RED CELL DISTRIBUTION WIDTH 13.2 % (11.5-14.0); SEGMENTED NEUTROPHILS % (AUTO) 55.6 % (42-78); TOTAL CELLS COUNTED % (AUTO) 100 %; WHITE BLOOD COUNT 5.8 10^3/uL (4.0-10.5)
--- NOTE | 2018-07-02 03:38 | ER Document Report ---
ED Cardiac - General Chief Complaint: Palpitations Stated Complaint: PALPITATIONS Time Seen by Provider: 07/02/18 02:53 Mode of Arrival: Ambulatory Information source: Patient TRAVEL OUTSIDE OF THE [place] IN LAST 30 DAYS: No - HPI Patient complains to provider of: Other - 67-year-old female with a history of previously diagnosed paroxysmal atrial fibrillation for which she has been started on atenolol, she also has a history of hypertension, no diagnosed history of myocardial infarction or other injuries in the past no lung problems that she knows of who presents for evaluation tonight of a sensation of palpitation while asleep. Her notes that she has had similar episodes in the past which have spontaneously resolved. She has not been ill recently or had any known missed medication doses though she did say that she is not certain if she took her medicines yesterday. - Related Data Allergies/Adverse Reactions: celecoxib [From Celebrex] Allergy (Severe, Verified 07/02/18 02:51) neomycin [Neomycin] Allergy (Severe, Verified 07/02/18 02:51) alendronate sodium [From Fosamax] Allergy (Mild, Verified 07/02/18 02:51) amoxicillin [Amoxicillin] Allergy (Mild, Verified 07/02/18 02:51) atorvastatin calcium [From Lipitor] Allergy (Mild, Verified 07/02/18 02:51) risedronate sodium [From Actonel] Allergy (Mild, Verified 07/02/18 02:51) simvastatin [Simvastatin] Allergy (Verified 07/02/18 02:51) Past Medical History - General Information source: Patient, Relative - Social History Smoking Status: Never Smoker Frequency of alcohol use: Occasional Drug Abuse: None Family History: Reviewed & Not Pertinent Patient has suicidal ideation: No Patient has homicidal ideation: No - Past Medical History Cardiac Medical History: Reports: Hx Atrial Fibrillation, Hx Coronary Artery Disease, Hx Hypercholesterolemia, Hx Hypertension Denies: Hx Congestive Heart Failure, Hx DVT, Hx Heart Attack, Hx Pulmonary Embolism - / Pulmonary Medical History: Reports: Hx Asthma - exercise induced asthma Denies: Hx Bronchitis, Hx COPD, Hx Pneumonia, Hx Sleep Apnea Neurological Medical History: Denies: Hx Cerebrovascular Accident, Hx Seizures Endocrine Medical History: Denies: Hx Diabetes Mellitus Type 1, Hx Diabetes Mellitus Type 2, Hx Hyperthyroidism, Hx Hypothyroidism Renal/ Medical History: Denies: Hx Peritoneal Dialysis GI Medical History: Reports: Hx Gastroesophageal Reflux Disease. Denies: Hx Cirrhosis, Hx Hepatitis Musculoskeletal Medical History: Reports Hx Arthritis - RA Skin Medical History: Reports Hx Psoriasis Psychiatric Medical History: Denies: Hx Depression Infectious Medical History: Denies: Hx C-Diff, Hx Hepatitis, Hx MRSA Past Surgical History: Reports: Hx Breast Surgery - left biopsy, Other - Excision of cerebral meningioma. Denies: Hx Hysterectomy - Immunizations Hx Diphtheria, Pertussis, Tetanus Vaccination: Yes Review of Systems - Review of Systems -: Yes All other systems reviewed and negative Physical Exam - Vital signs Vitals: Pulse Ox 98 07/02/18 02:48 - General General appearance: Appears well In distress: None - HEENT Head: Normocephalic Eyes: Normal Conjunctiva: Normal Cornea: Normal Extraocular movements intact: Yes Eyelashes: Normal Pupils: PERRL - Respiratory Respiratory status: No respiratory distress Chest status: Nontender Breath sounds: Normal Chest palpation: Normal - Cardiovascular Rhythm: Regular Heart sounds: Normal auscultation Murmur: No - Abdominal Inspection: Normal Distension: No distension Tenderness: Nontender - Back Back: Normal - Extremities General upper extremity: Normal inspection, Nontender, Normal ROM, Normal strength General lower extremity: Normal inspection, Nontender, Normal ROM, Normal strength - Neurological Neuro grossly intact: Yes Cognition: Normal Orientation: AAOx4 Jermain Coma Scale Eye Opening: Spontaneous Jermain Coma Scale Verbal: Oriented Jermain Coma Scale Motor: Obeys Commands Beatrice Coma Scale Total: 15 Speech: Normal Motor strength normal: LUE, RUE, LLE, RLE - Psychological Associated symptoms: Normal affect Course - Re-evaluation Re-evalutation: 07/02/18 03:38 Here is a well-appearing 67-year-old female with a history of paroxysmal atrial fibrillation in the past who presents for evaluation of a sensation of a palpitation. She is on atenolol for rate control. Not on anticoagulation at this time. Is uncertain whether or not she took medications yesterday currently she is asymptomatic and has no complaints. Through triage she had an EKG obtained which looks very similar to her previous which was in February 2017. 07/02/18 04:48 Patient with a normal thyroid function, normal electrolytes, no damage to the heart, patient was on monitor in emergency department without any arrhythmia noted and no obvious ectopy. She was also noted while in the emergency department that she believes that it may be triggered by exposure to garlic. Because of her issues related to garlic as a possible underlying cause of her palpitations and reflux symptoms have instructed her about expectant management. She is demonstrating hypertension has known hypertension at baseline. Current plan is for this woman undergo discharge with return precautions and encouragement to continue use of atenolol as needed for her palpitations. - Vital Signs Vital signs: Temp Pulse Resp BP Pulse Ox 13 162/79 H 97 07/02/18 04:01 07/02/18 04:01 07/02/18 04:01 - Laboratory Result Diagrams: 07/02/18 03:14 07/02/18 03:14 Laboratory results interpreted by me: 07/02/18 03:14 Sodium 145.2 H Creatine Kinase 25 L Discharge - Discharge Clinical Impression: Palpitation, Belching Condition: Good Disposition: HOME, SELF-CARE Instructions: Palpitations (Irregular or Rapid Heartrate) ([facility]), Beta Blockers ([facility]) Additional Instructions: You were seen for your palpitations today in the emergency department. You had tests for your thyroid, kidney function and blood counts as well as markers for damage to your heart none of which showed any obvious abnormality. You should return in case of worsening shortness of breath, chest pain or other issues. Make sure you are taking your atenolol as previously. You should avoid garlic as it may be part of the underlying cause of your palpitations. Forms: Elevated Blood Pressure Referrals: JHONNY RIOS MD [ACTIVE STAFF] - Follow up as needed
--- NOTE | 2018-07-02 03:39 | RADIOLOGY REPORT (SQ) ---
EXAM DESCRIPTION: XR CHEST 1 VIEW COMPLETED DATE/TME: 07/02/2018 03:06 CLINICAL HISTORY: 67 years, Female, palpitations COMPARISON: 7-17 chest x-ray NUMBER OF VIEWS: 1 TECHNIQUE: Frontal view the chest LIMITATIONS: None. FINDINGS: Heart size is normal. Osteopenia. Lungs are clear. No pneumothorax IMPRESSION: No acute cardiopulmonary process 2010 [facility], [place] [facility] [employer]- All Rights Reserved
[2018-07-02 03:47] LABS: ALANINE AMINOTRANSFERASE 23 U/L (9-52); ALKALINE PHOSPHATASE 73 U/L (38-126); ANION GAP 10 (5-19); ASPARTATE AMINO TRANSFERASE 27 U/L (14-36); BILIRUBIN,DIRECT 0.2 mg/dL (0.0-0.4); BILIRUBIN,TOTAL 0.3 mg/dL (0.2-1.3); BLOOD UREA NITROGEN 11 mg/dL (7-20); CALCIUM 9.4 mg/dL (8.4-10.2); CARBON DIOXIDE 30 mmol/L (22-30); CHLORIDE 105 mmol/L (98-107); CREATINE KINASE 25 U/L (30-135); GLUCOSE 97 mg/dL (75-110); POTASSIUM 3.8 mmol/L (3.6-5.0); SODIUM 145.2 mmol/L (137-145); TOTAL PROTEIN 6.5 g/dL (6.3-8.2)
[2018-07-02 03:59] LABS: CREATINE KINASE MB 0.38 ng/mL (<4.55)
[2018-07-02 04:01] LABS: TROPONIN I < 0.012 ng/mL
[2018-07-02 04:04] LABS: FREE T4 (FREE THYROXINE) 1.06 ng/dL (0.78-2.19)
[2018-07-02 04:17] LABS: THYROID STIMULATING HORMONE 4.16 uIU/mL (0.47-4.68)
[2018-07-02 05:12] VITALS: BP 161/74
--- NOTE | 2018-07-02 10:35 | EKG REPORT ---
SEVERITY:- BORDERLINE ECG - SINUS RHYTHM BORDERLINE LEFT AXIS DEVIATION BORDERLINE R WAVE PROGRESSION, ANTERIOR LEADS BORDERLINE T ABNORMALITIES, ANTERIOR LEADS : Confirmed by: Luciano Martino 02-Jul-2018 10:34:25
== END 2018-07-02 05:12 | disposition home or self-care (01) ==
LOC: ER 02:25
DX: R00.2 Palpitations (principal); R14.2 Eructation; I10 Essential (primary) hypertension; I25.10 Atherosclerotic heart disease of native coronary artery without angina pectoris; J45.909 Unspecified asthma, uncomplicated; I48.0 Paroxysmal atrial fibrillation; Z79.899 Other long term (current) drug therapy; Z88.8 Allergy status to other drugs, medicaments and biological substances; Z88.1 Allergy status to other antibiotic agents; Z88.0 Allergy status to penicillin
CPT/HCPCS: 36415; 71045; 80053; 82550; 82553; 84439; 84443; 84484; 85025; 93005; 93010; 99285